=== PATIENT | female | born 1965 | race African-American/Black ===

== ENCOUNTER 2017-01-28 15:59 | Emergency (ER) | payer SELFPAY ==
[~2017-01-28] VITALS: Ht 165.1 cm; Wt 98.0 kg
[2017-01-28 16:04] VITALS: BP 156/104
[2017-01-28] MEDS ORDERED: KETOROLAC 30MG/ML VIAL IM ONE (23:15)
[2017-01-28] MEDS ORDERED: ONDANSETRON 4MG ODT PO PRN (23:15)
== END 2017-01-29 01:33 | disposition home or self-care (01) ==
LOC: ER 16:01
DX: S13.9XXA Sprain of joints and ligaments of unspecified parts of neck, initial encounter (principal); R07.81 Pleurodynia; M25.512 Pain in left shoulder; V48.0XXA Car driver injured in noncollision transport accident in nontraffic accident, initial encounter; W22.19XA Striking against or struck by other automobile airbag, initial encounter; Y93.89 Activity, other specified; Y92.89 Other specified places as the place of occurrence of the external cause; Y99.8 Other external cause status
CPT/HCPCS: 71010; 72100; 72125; 93005; 96372; 99284; J1885; Q0162; L0172